=== PATIENT | female | born 1970 | race Caucasian/White ===

== ENCOUNTER → 2021-01-22 16:14 | Outpatient (CLI) | payer OTHER, SELFPAY ==
[2021-01-23 10:08] LABS: SARS-CoV19- IgM Negative (Negative)
== END ==
PROVIDERS: PCP Family Medicine; Referring Provider Family Medicine; Visit Provider Family Medicine
DX: Z01.84 Encounter for antibody response examination (principal)
CPT/HCPCS: 36415; 86769

== ENCOUNTER → 2022-01-07 13:21 | Outpatient (CLI) | payer OTHER, SELFPAY | PROVIDERS: PCP Family Medicine; Referring Provider Registered Nurse; Visit Provider Nurse Practitioner Family | DX: L89.152 Pressure ulcer of sacral region, stage 2 (principal); S70.311A Abrasion, right thigh, initial encounter; S70.312A Abrasion, left thigh, initial encounter; I89.0 Lymphedema, not elsewhere classified; G35 Multiple sclerosis; Z74.09 Other reduced mobility | CPT/HCPCS: 97597; 99203; 99213 ==

== ENCOUNTER → 2022-01-14 14:48 | Outpatient (CLI) | payer OTHER, SELFPAY | PROVIDERS: PCP Family Medicine; Referring Provider Family Medicine; Visit Provider Nurse Practitioner Family | DX: L89.152 Pressure ulcer of sacral region, stage 2 (principal); S70.311A Abrasion, right thigh, initial encounter; S70.312A Abrasion, left thigh, initial encounter; G35 Multiple sclerosis; Z74.09 Other reduced mobility; R60.9 Edema, unspecified; Z75.0 Medical services not available in home; Z99.3 Dependence on wheelchair | CPT/HCPCS: 97597; 99213 ==

== ENCOUNTER → 2022-01-21 14:39 | Outpatient (CLI) | payer OTHER, SELFPAY | PROVIDERS: PCP Family Medicine; Referring Provider Family Medicine; Visit Provider Nurse Practitioner Family | DX: L89.322 Pressure ulcer of left buttock, stage 2 (principal); I89.0 Lymphedema, not elsewhere classified; G35 Multiple sclerosis; Z74.09 Other reduced mobility; F17.210 Nicotine dependence, cigarettes, uncomplicated; Z99.3 Dependence on wheelchair | CPT/HCPCS: 97597 ==

== ENCOUNTER → 2022-02-04 12:33 | Outpatient (CLI) | payer OTHER, SELFPAY | PROVIDERS: PCP Family Medicine; Referring Provider Family Medicine; Visit Provider Surgery | DX: L89.322 Pressure ulcer of left buttock, stage 2 (principal) | CPT/HCPCS: 99213 ==

== ENCOUNTER → 2022-02-18 14:15 | Outpatient (CLI) | payer OTHER, SELFPAY | PROVIDERS: PCP Family Medicine; Referring Provider Family Medicine; Visit Provider Nurse Practitioner Family | DX: L89.322 Pressure ulcer of left buttock, stage 2 (principal); G35 Multiple sclerosis; Z74.09 Other reduced mobility; F17.210 Nicotine dependence, cigarettes, uncomplicated | CPT/HCPCS: 97602; 99213 ==

== ENCOUNTER → 2022-02-25 14:48 | Outpatient (CLI) | payer OTHER, SELFPAY | PROVIDERS: PCP Family Medicine; Referring Provider Family Medicine; Visit Provider Nurse Practitioner Family | DX: L89.152 Pressure ulcer of sacral region, stage 2 (principal); G35 Multiple sclerosis; N31.9 Neuromuscular dysfunction of bladder, unspecified; Z93.6 Other artificial openings of urinary tract status | CPT/HCPCS: 97597; 99213 ==

== ENCOUNTER → 2022-03-10 13:55 | Outpatient (CLI) | payer OTHER, SELFPAY | PROVIDERS: PCP Family Medicine; Referring Provider Family Medicine; Visit Provider Surgery | DX: Z87.440 Personal history of urinary (tract) infections (principal); L89.313 Pressure ulcer of right buttock, stage 3; L89.322 Pressure ulcer of left buttock, stage 2; G35 Multiple sclerosis; Z74.09 Other reduced mobility; R60.9 Edema, unspecified; N31.9 Neuromuscular dysfunction of bladder, unspecified; N39.41 Urge incontinence; Z97.8 Presence of other specified devices; L89.302 Pressure ulcer of unspecified buttock, stage 2; R39.89 Other symptoms and signs involving the genitourinary system; N39.0 Urinary tract infection, site not specified; Z86.69 Personal history of other diseases of the nervous system and sense organs | CPT/HCPCS: 11042; 81002; 87077; 87086; 87186 ==

== ENCOUNTER → 2022-03-10 15:17 | Outpatient (CLI) | payer OTHER, SELFPAY | PROVIDERS: PCP Family Medicine; Visit Provider Urology | DX: Z87.440 Personal history of urinary (tract) infections (principal) | CPT/HCPCS: 87077; 87086; 87186 ==

== ENCOUNTER → 2022-03-24 12:02 | Outpatient (CLI) | payer OTHER, SELFPAY ==
--- NOTE | 2022-03-24 12:05 | DI.CT.S_ITS ---
PROCEDURE: CT IVP A/P W/WO INDICATIONS: RECURRING UTI/NEUROGENIC BLADDER TECHNIQUE: Optional 5 mm thick noncontrast images acquired from the diaphragm to the symphysis pubis. After the administration of intravenous contrast, 5 mm thick images acquired from the diaphragm to the symphysis pubis after a 10-minute delay. 2 mm thick coronal and sagittal reformats were then performed of the kidneys and ureters. For radiation dose reduction, the following was used: automated exposure control, adjustment of mA and/or kV according to patient size. COMPARISON: None. FINDINGS: Image quality: Excellent. Lung bases: Lung bases are clear. Heart size is normal. Urinary system: Both kidneys are normal in size, without hydronephrosis or nephrolithiasis on pre-contrast images. No perinephric fat stranding. There is normal bilateral renal enhancement. Renal calyces appear normal in morphology when filled with contrast. Opacified portions of both ureters demonstrate normal caliber. A Martinez catheter is seen, which largely decompresses the bladder. [id number] bladder wall thickening can be seen anteriorly. No calcified bladder stones. Other solid organs: Liver is normal in size and enhancement. Gallbladder has been removed. Biliary system is non dilated. Pancreas enhances normally. Spleen is normal in size and enhancement. No adrenal nodules. Peritoneum and bowel: Bowel loops demonstrate normal wall thickness and caliber. No free fluid or air. A normal appendix is incidentally noted. Nodes and vessels: No retroperitoneal or mesenteric adenopathy by size criteria. Aorta and inferior vena cava are normal in size. Abdominal wall: No ventral hernias. Postoperative change of the anterior abdominal wall can be seen. Pelvis: No pathologic free pelvic fluid. No inguinal hernias or adenopathy. Bones: No suspicious bony lesions. No vertebral body compression fractures. Focal L5-S1 degenerative change is seen. Milder degenerative changes are seen elsewhere. IMPRESSION: Normal appearing kidneys, without hydronephrosis or masses. A Martinez catheter is seen, which largely decompresses the bladder. Mild to moderate bladder wall thickening can be seen anteriorly. Additional findings: Cholecystectomy Focal L5-S1 degenerative change Dictated by: Turner Porras M.D. on 03/24/2022 at 12:40 Approved by: Turner Porras M.D. on 03/24/2022 at 12:42
== END ==
PROVIDERS: PCP Family Medicine; Referring Provider Urology; Visit Provider Urology
DX: N39.0 Urinary tract infection, site not specified (principal); N31.9 Neuromuscular dysfunction of bladder, unspecified; M47.817 Spondylosis without myelopathy or radiculopathy, lumbosacral region; Z90.49 Acquired absence of other specified parts of digestive tract
CPT/HCPCS: 74178; Q9967

== ENCOUNTER → 2022-03-25 13:56 | Outpatient (CLI) | payer OTHER, SELFPAY | PROVIDERS: PCP Family Medicine; Referring Provider Family Medicine; Visit Provider Nurse Practitioner Family | DX: L89.313 Pressure ulcer of right buttock, stage 3 (principal); L89.152 Pressure ulcer of sacral region, stage 2; R60.9 Edema, unspecified; G35 Multiple sclerosis; Z74.09 Other reduced mobility; F17.210 Nicotine dependence, cigarettes, uncomplicated | CPT/HCPCS: 99212; 99213 ==

== ENCOUNTER → 2022-04-29 13:26 | Outpatient (CLI) | payer OTHER, SELFPAY ==
[2022-04-29 15:20] LABS: BUN Creatinine Ratio 17.1 (6-22); Blood Urea Nitrogen 12 mg/dL (7-17); Calcium 9.2 mg/dL (8.4-10.2); Carbon Dioxide 28 mmol/L (22-32); Chloride 106 mmol/L (98-107); Estimated Glomerular Filt Rate > 60 mL/min (>60); Glucose 90 mg/dL (70-100); HEMOLYSIS < 15 (0-50); Potassium 3.8 mmol/L (3.4-5.1); Sodium 141 mmol/L (137-145)
== END ==
PROVIDERS: Urology; PCP Family Medicine; Referring Provider Psychiatry & Neurology Neurology; Visit Provider Psychiatry & Neurology Neurology
DX: Z79.899 Other long term (current) drug therapy (principal); Z01.812 Encounter for preprocedural laboratory examination; Z20.822 Contact with and (suspected) exposure to COVID-19
CPT/HCPCS: 36415; 80048; 86769

== ENCOUNTER → 2022-05-05 15:54 | Outpatient (CLI) | payer OTHER, SELFPAY | PROVIDERS: PCP Family Medicine; Visit Provider Urology | DX: G35 Multiple sclerosis (principal); N31.9 Neuromuscular dysfunction of bladder, unspecified; N39.0 Urinary tract infection, site not specified; N39.41 Urge incontinence; Z97.8 Presence of other specified devices | CPT/HCPCS: 81002; 87077; 87086; 87186 ==

== ENCOUNTER → 2022-05-25 16:17 | Outpatient (CLI) | payer OTHER, SELFPAY | PROVIDERS: PCP Family Medicine; Visit Provider Urology | DX: R26.89 Other abnormalities of gait and mobility (principal); N31.9 Neuromuscular dysfunction of bladder, unspecified; N39.41 Urge incontinence; G35 Multiple sclerosis; Z97.8 Presence of other specified devices | CPT/HCPCS: 52000; 87077; 87086; 87186 ==

== ENCOUNTER → 2022-06-24 15:14 | Outpatient (CLI) | payer OTHER, SELFPAY ==
--- NOTE | 2022-06-24 15:15 | DI.RAD.S_ITS ---
PROCEDURE: XR KUB INDICATIONS: bladder calculi TECHNIQUE: One view of the abdomen acquired. COMPARISON: Located Within [facility], CT, CT IVP A/P W/WO, 03/24/2022, 12:10. FINDINGS: Surgical changes and devices: Cholecystectomy clips. Bowel: Bowel gas pattern is normal. Soft tissues: No bladder stone identified. No kidney stones seen. No suspicious abdominal calcifications. Visualized solid organ contours appear normal in size. Vascular calcifications in the region of the splenic hilum. Bones: No suspicious bony lesions. IMPRESSION: No kidney stone or bladder stone seen. Dictated by: Norm Briseno M.D. on 06/24/2022 at 16:51 Approved by: Norm Briseno M.D. on 06/24/2022 at 16:53
== END ==
PROVIDERS: PCP Family Medicine; Referring Provider Urology; Visit Provider Urology
DX: N21.0 Calculus in bladder (principal)
CPT/HCPCS: 74018

== ENCOUNTER → 2022-06-28 15:09 | Outpatient (CLI) | payer OTHER, SELFPAY | PROVIDERS: PCP Family Medicine; Visit Provider Urology | DX: N31.9 Neuromuscular dysfunction of bladder, unspecified (principal); N39.0 Urinary tract infection, site not specified; R32 Unspecified urinary incontinence; Z87.440 Personal history of urinary (tract) infections; Z97.8 Presence of other specified devices; N21.0 Calculus in bladder; G35 Multiple sclerosis; Z86.69 Personal history of other diseases of the nervous system and sense organs; N39.41 Urge incontinence | CPT/HCPCS: 51702; 87077; 87086; 87186 ==

== ENCOUNTER 2022-07-19 11:01 | Day surgery (SDC) | payer OTHER, SELFPAY ==
[2022-07-19] VITALS (7 sets, daily range): BP systolic 135–172; BP diastolic 78–91; PULSE 75–91; RESP 12–19; TEMP 36.3–36.8; O2SAT 93–96; BMI 37.8
[2022-07-19] MEDS: LACTATED RINGERS 1,000 ML 42 ML IV (12:13)
--- NOTE | 2022-07-19 12:45 | PM.PREOP ---
Pre-operative Note COVID-19 COVID-19 status: Not tested Criteria for continued procedure: Delay expected to result in less-positive ultimate med/surg outcome and Non-surgical alternatives not available or appropriate per current SOC Interval Note History & Physical reviewed/Exam performed by Physician: Yes Changes to H&P: No
[2022-07-19] MEDS: CEFAZOLIN 2 GM/100 ML PREMIX 100 ML IV (12:55)
--- NOTE | 2022-07-19 13:18 | SUR.OPER ---
Lithotomy on padded OR bed, head on pillow, arms secured on padded arm boards at <90 degrees abduction. Legs secured in padded yellow fins stirrups.
--- NOTE | 2022-07-19 13:30 | PM.OP.1 ---
Procedure & Clinicians Procedure: Cystolitholapaxy with evacuation of stone fragments and cystoscopy Same procedure as scheduled: Yes Indications: This 52-year-old female with MS, neurogenic bladder and chronically indwelling Martinez was found to have bladder calcifications and presents at this time for cystolitholapaxy to clear the calcifications and crystallization from her bladder. Patient is currently on antibiotics for culture specific growth. And will be covered by appropriate IV antibiotics as indicated by culture also. Surgeon: Xavi Cuellar Click Yes if Unassisted: Yes Anesthesia Type: General Operative Notes Findings: External genitalia is normal for if wheelchair-bound patient. Urethral meatus appears normal but somewhat enlarged. Sphincter is poorly coapted and urethral mucosa is normal. Ureteral orifices in normal position. There is bullous edema from her indwelling Martinez catheter. There are multiple calcifications 1 is dominant approximately 2-1/2 cm in diameter but rather flat approximately 4 mm in thickness. At the end of the procedure all fragments and calcifications were removed. And the 22 [place] 30 cc Martinez catheter was put back in place with 30 cc in the balloon it drained clear fluid and when seated appropriately did not leak. Closure Type: not applicable Specimen(s): other (Stone fragments for compositional analysis) Applied: catheter ([address] Martinez catheter 30 cc in the balloon.) Blood products transfused: none Procedure in detail: Procedure in detail: After informed consent was obtained, the patient was identified and brought to the operating room where she is placed in a supine position on the table. Anesthesia was induced and maintained. Ensuring an adequate level of anesthesia patient was transitioned to the lithotomy position where she was prepped, draped, prepared for Transurethral procedure. After prepping, draping, ensuring an adequate level of anesthesia and time-out a 22 [place] cystoscope sheath was passed through the urethra into the bladder. Cystoscopy was then performed. The stone curtain hemmer automatic was then inserted and the stones sequentially crushed to a size where they would washout. They were then evacuated washed out lavaged from the bladder to there were no stone fragments left. The bladder was then left full and the scope removed the 22 [place] catheter inserted and 30 cc placed within the balloon and it was placed to gravity drainage. At this point the patient was awakened having tolerated the procedure well she was transferred to the postanesthesia care unit for recovery there were no complications. Patient is to continue her antibiotics until they are gone. Complications: none Post-operative Condition: stable Disposition: PACU Plan for aftercare: Patient to follow up for my office as previously scheduled patient is to be discharged home with her Martinez catheter.
[2022-07-28 23:13] LABS: Carbonate Apatite 10 % (.); Magnesium ammon phos 90 % (.); Size 5x5 mm (.)
== END 2022-07-19 14:47 | disposition home or self-care (01) ==
PROVIDERS: PCP Family Medicine; Referring Provider Urology; Visit Provider Urology
PROC: 0TCB8ZZ Extirpation of Matter from Bladder, Via Natural or Artificial Opening Endoscopic (ICD-10-PCS; CPT 52318; principal; 2022-07-19 13:30)
DX: N21.0 Calculus in bladder (principal); N31.9 Neuromuscular dysfunction of bladder, unspecified
CPT/HCPCS: 52318; 82365; 82962; J0690; J1100; J2405; J2704; J3010

== ENCOUNTER 2022-08-09 13:38 | Emergency (ER) | payer OTHER, SELFPAY ==
[2022-08-09] VITALS (8 sets, daily range): BP systolic 125–163; BP diastolic 58–103; PULSE 84–106; RESP 16–37; TEMP 36.9; O2SAT 95–97
--- NOTE | 2022-08-09 14:34 | ED_ITS ---
HPI - Female Genitourinary <Carolyn Ashraf PA-C - Last Filed: 08/09/22 18:27> General Chief complaint: Urogenital-Female Stated complaint: pain in uretha and vaginia Time Seen by Provider: 08/09/22 14:04 Source: patient Mode of arrival: Wheelchair History of Present Illness HPI Narrative: 52-year-old female with past medical history multiple sclerosis, neurogenic bladder, bladder calculi, recurrent UTIs presents to the ED with 3 weeks of lower abdominal and urethral pain. Patient had a cystoscopy done to clear out multiple bladder calculi on 07/19/[address] Cuellar. Patient states that ever since the procedure, her symptoms have persisted. Patient states that her symptoms are actually worsening over the last week. Patient states that Dr. Cuellar declined to see her after the procedure for a postop evaluation, advised her to seek more specialized care from a urologist in [facility] [place]. Patient was able to obtain an appointment with another urology specialist in [place] that is a more accessible location to her than [place]. However, patient's initial appointment was scheduled in September, and the latest is that her appointment has been moved to an earlier date namely 08/15/2022. Patient presents to the ED he is since Dr. Smith again declined to see her since she already has an appointment with the other specialist. Patient denies fever, chills, chest pain, shortness of breath, nausea, vomiting, flank pain, lightheadedness, dizziness, syncope. Patient states that her mobility has been severely restricted due to the pain, standing up particularly exacerbates her abdominal pain. Related Data Home Medications Medication Instructions Recorded Confirmed alpha lipoic acid PO 03/10/22 06/28/22 ascorbate calcium (vitamin C) 500 1 g PO DAILY 03/10/22 07/19/22 mg tablet baclofen 20 mg tablet 20 mg PO QID 03/10/22 07/19/22 biotin-keratin [Biotin Plus PO 03/10/22 06/28/22 Keratin] calcium carbonate [Calcium 500] PO 03/10/22 06/28/22 cholecalciferol (vitamin D3) 10 10 mcg PO DAILY 03/10/22 07/19/22 mcg (400 unit) capsule citalopram 20 mg tablet (Celexa) 20 mg PO DAILY 03/10/22 07/19/22 cranberry 400 mg capsule 400 mg PO DAILY 03/10/22 07/19/22 cyanocobalamin (vitamin B-12) 1,000 mcg PO DAILY 03/10/22 07/19/22 1,000 mcg capsule d-mannose 500 mg capsule mg PO 03/10/22 06/28/22 dalfampridine 10 mg 10 mg PO Q12H 03/10/22 07/19/22 tablet,extended release,12 hr furosemide 40 mg tablet 40 mg PO BID 03/10/22 07/19/22 gabapentin 100 mg capsule 300 mg PO BEDTIME 03/10/22 07/19/22 magnesium 250 mg tablet 500 mg PO DAILY 03/10/22 07/19/22 methenamine hippurate 1 gram tablet 1 g PO BID 03/10/22 07/19/22 flilxcticoui-wjlgavar-ljvrpnu-folic 1 tab PO DAILY 03/10/22 07/19/22 acid 400 mcg-vit K1 20 mcg tablet (Women's 50 Plus Advanced) norethindrone acetate 5 mg tablet 5 mg PO DAILY 03/10/22 07/19/22 omega-3 fatty acids-fish oil 360 1 cap PO DAILY 03/10/22 07/19/22 mg-1,200 mg capsule (Fish Oil) omeprazole 20 mg capsule,delayed 20 mg PO DAILY 03/10/22 07/19/22 release rosuvastatin 20 mg tablet 20 mg PO BEDTIME 03/10/22 07/19/22 siponimod 2 mg tablet (Mayzent) 2 mg PO DAILY 03/10/22 07/19/22 tizanidine 4 mg capsule 4 mg PO TID PRN infection 03/10/22 07/19/22 Previous Rx's Medication Instructions Recorded vibegron 75 mg tablet (Gemtesa) 75 mg PO DAILY Poor efficacy of 03/30/22 current med #90 tabs sulfamethoxazole 800 1 tab PO BID #30 tabs 05/10/22 mg-trimethoprim 160 mg tablet (Bactrim DS) sulfamethoxazole 800 1 tab PO BID Extending antibiotic 05/27/22 mg-trimethoprim 160 mg tablet coverage #10 tabs (Bactrim DS) fluconazole 100 mg tablet 100 mg PO DAILY Yeast infection 07/01/22 (Diflucan) #10 tabs sulfamethoxazole 800 1 tab PO Q12H 10 days #20 tabs 08/09/22 mg-trimethoprim 160 mg tablet (Bactrim DS) Allergies Allergy/AdvReac Type Severity Reaction Status Date / Time No Known Drug Allergies Allergy Verified 07/19/22 11:35 Review of Systems <Carolyn Ashraf PA-C - Last Filed: 08/09/22 18:27> Review of Systems ROS Unobtainable: All systems reviewed & are unremarkable except as noted in HPI and below Constitutional Constitutional: Denies chills, Denies fatigue, Denies fever(s), Denies frequent falls, Denies lethargy and Denies weakness Eyes Eyes: Denies change in vision, Denies eye discharge, Denies irritation and Denies loss of vision ENT Ears, Nose, Mouth, and Throat: Denies change in voice, Denies dizziness, Denies neck pain, Denies sore throat and Denies throat swelling Cardiovascular Cardiovascular: Denies chest pain, Denies irregular heart rhythm, Denies lightheadedness, Denies palpitations, Denies dyspnea, Denies dyspnea on exertion and Denies orthopnea Respiratory Respiratory: Denies cough, Denies dyspnea, Denies dyspnea on exertion and Denies wheezing Gastrointestinal Gastrointestinal: Denies abdominal pain, Denies change in bowel habits, Denies diarrhea, Denies nausea and Denies vomiting Genitourinary Genitourinary: Denies hematuria, Reports pelvic pain, Denies flank pain, Denies urinary incontinence and Reports urinary urgency Comments: Urethral pain Musculoskeletal Musculoskeletal: Denies back pain, Denies muscle weakness, Denies neck pain, Denies numbness and Denies tingling Integumentary/Breasts Skin/Breast: Denies pruritus, Denies erythema, Denies rash and Denies wounds Neurologic Neurologic: Denies behavioral changes, Denies confusion, Denies dizziness, Denies frequent falls, Denies loss of vision, Denies numbness, Denies tingling and Denies weakness Psychiatric Psychiatric: Denies anxiety, Denies behavioral changes, Denies confusion, Denies depression, Denies homicidal ideation and Denies suicidal ideation Endocrine Endocrine: Denies fatigue, Denies flushing and Denies palpitations Hematologic/Lymphatic Hematologic/Lymphatic: Denies easy bruising Allergic/Immunologic Allergic/Immunologic: Denies urticaria, Denies throat swelling and Denies wheezing Patient History <Carolyn Ashraf PA-C - Last Filed: 08/09/22 18:27> Medical History Anemia Bladder calculi Decreased mobility Martinez catheter present GERD (gastroesophageal reflux disease) History of anemia History of chronic urinary tract infection History of decubitus ulcer Hx of gastroesophageal reflux (GERD) Hx of migraine headaches Hx of neurological disease MS (multiple sclerosis) Neurogenic bladder Recurrent urinary tract infection Recurrent urinary tract infection Urinary leakage Surgical History History of back surgery Hx of breast biopsy Hx of cholecystectomy Family History Mother Diabetes mellitus Hyperlipidemia Hypertension Grandfather Gout Substance Use Type: marijuana Exam <Carolyn Ashraf PA-C - Last Filed: 08/09/22 18:27> Narrative Exam Narrative: Const General:?cooperative, healthy appearing and comfortable HENMT Head:?normal to inspection Ears:?hearing grossly normal bilaterally Nose:?external nose normal Face and sinus:?normal facial exam and sinuses nontender Mouth:?oral mucosae normal Throat:?posterior oropharynx normal Eyes General:?appearance normal, both eyes and all related structures Neck Neck:?normal visual inspection and no lymphadenopathy noted Resp Effort & Inspection:?normal respiratory effort Auscultation:?clear to auscultation bilaterally Cardio Rate:?regular rate Rhythm:?regular rhythm GI Abdomen is soft, nondistended. Abdomen is slightly tender to palpation in the suprapubic and left lower quadrants. No CVA tenderness. External genital exam significant for a yeast infection with thick white discharge. No prolapse visualized on external genital exam. Neuro General:?patient alert, patient awake and patient oriented x3 Initial Vital Signs Initial Vital Signs: Vital Signs Temperature 98.5 F 08/09/22 13:43 Pulse Rate 104 H 08/09/22 13:43 Respiratory Rate 20 08/09/22 13:43 Blood Pressure 163/72 H 08/09/22 13:43 Pulse Oximetry 95 08/09/22 13:43 Oxygen Delivery Method Room Air 08/09/22 13:43 <Amrik Emerson DO - Last Filed: 08/10/22 08:13> Initial Vital Signs Initial Vital Signs: Vital Signs Temperature 98.5 F 08/09/22 13:43 Pulse Rate 104 H 08/09/22 13:43 Respiratory Rate 20 08/09/22 13:43 Blood Pressure 163/72 H 08/09/22 13:43 Pulse Oximetry 95 08/09/22 13:43 Oxygen Delivery Method Room Air 08/09/22 13:43 Course <Carolyn Ashraf PA-C - Last Filed: 08/09/22 18:27> Orders Ordered: ED Orders 08/09/22 14:08 CT abdomen pelvis w con Stat 08/09/22 16:45 CBC Auto Diff [Complete Blood Count AUTO DIFF] Stat CMP [Comprehensive Metabolic Panel] Stat Lipase Stat 08/09/22 17:04 Urine Culture Stat Urine Microscopic Stat Vital Signs Vital signs: Vital Signs - 8 hr 08/09/22 13:43 08/09/22 16:31 08/09/22 16:33 Temperature 98.5 F Pulse Rate 104 H 92 H Respiratory Rate 20 Blood Pressure 163/72 H 139/88 Pulse Oximetry 95 95 Oxygen Delivery Method Room Air 08/09/22 16:33 08/09/22 17:00 08/09/22 17:01 Temperature Pulse Rate 106 H 84 85 Respiratory Rate 24 16 Blood Pressure Pulse Oximetry 95 97 97 Oxygen Delivery Method 08/09/22 17:01 08/09/22 17:30 08/09/22 17:31 Temperature Pulse Rate 85 85 Respiratory Rate 25 H 25 H Blood Pressure 125/77 Pulse Oximetry 96 96 Oxygen Delivery Method Room Air 08/09/22 17:31 Temperature Pulse Rate Respiratory Rate Blood Pressure 138/58 L Pulse Oximetry Oxygen Delivery Method <Amrik Emerson DO - Last Filed: 08/10/22 08:13> Orders Ordered: ED Orders 08/09/22 14:08 CT abdomen pelvis w con Stat 08/09/22 16:45 CBC Auto Diff [Complete Blood Count AUTO DIFF] Stat CMP [Comprehensive Metabolic Panel] Stat Lipase Stat 08/09/22 17:04 Urine Culture Stat Urine Microscopic Stat Vital Signs Vital signs: Vital Signs - 8 hr 08/09/22 13:43 08/09/22 16:31 08/09/22 16:33 Temperature 98.5 F Pulse Rate 104 H 92 H Respiratory Rate 20 Blood Pressure 163/72 H 139/88 Pulse Oximetry 95 95 Oxygen Delivery Method Room Air 08/09/22 16:33 08/09/22 17:00 08/09/22 17:01 Temperature Pulse Rate 106 H 84 85 Respiratory Rate 24 16 Blood Pressure Pulse Oximetry 95 97 97 Oxygen Delivery Method 08/09/22 17:01 08/09/22 17:30 08/09/22 17:31 Temperature Pulse Rate 85 85 Respiratory Rate 25 H 25 H Blood Pressure 125/77 Pulse Oximetry 96 96 Oxygen Delivery Method Room Air 08/09/22 17:31 Temperature Pulse Rate Respiratory Rate Blood Pressure 138/58 L Pulse Oximetry Oxygen Delivery Method MDM - Female Genitourinary <Hyma Andriy, MAGDALENA - Last Filed: 08/09/22 18:27> Lab Data 08/09/22 16:45 08/09/22 16:45 Labs: Lab Results 08/09/22 08/09/22 08/09/22 Range/Units 16:45 16:45 17:04 WBC 11.3 H (4.5-11.0) X10^3/uL RBC 4.98 (4.0-5.2) X10^6/uL Hgb 15.6 (12.0-16.0) g/dL Hct 44.9 (36-46) % MCV 90.2 (80-100) fL MCH 31.3 (26-34) PG MCHC 34.7 (30-36) % RDW 15.4 H (11.6-14.8) % Plt Count 248 (150-400) X10^3/uL Neut % (Auto) 87.9 H (50-75) % Lymph % (Auto) 3.3 L (25-40) % [place] % (Auto) 7.2 (3-14) % Eos % (Auto) 1.2 L (2-4) % Baso % (Auto) 0.4 (0-2) % Neut # (Auto) 9900 H (7875-0746) /uL Lymph # (Auto) 400 L (9581-4640) /uL [place] # (Auto) 800 (0-900) /uL Eos # (Auto) 100 (0-450) /uL Baso # (Auto) 0 (0-100) /uL Sodium 140 (137-145) mmol/L Potassium 3.5 (3.4-5.1) mmol/L Chloride 101 (98-107) mmol/L Carbon Dioxide 30 (22-32) mmol/L BUN 12 (7-17) mg/dL Creatinine 0.68 (0.52-1.04) mg/dL Estimated GFR > 60 (>60) mL/min BUN/Creatinine Ratio 17.6 (6-22) Glucose 102 H (70-100) mg/dL Calcium 9.1 (8.4-10.2) mg/dL Total Bilirubin 0.6 (0.2-1.3) mg/dL AST 18 (14-36) IU/L ALT 19 (<35) IU/L Alkaline Phosphatase 79 (38-126) U/L Total Protein 7.5 (6.3-8.2) g/dL Albumin 4.3 (3.5-5.0) g/dL Globulin 3.2 (1.7-4.1) g/dL Albumin/Globulin Ratio 1.3 (1.0-2.8) Lipase 92 (23-300) U/L Urine RBC 30-100/hpf H (0-5/HPF) Urine WBC 10-30/hpf H (0-5/HPF) Ur Squamous Epith Cells 0-1 /hpf (0-5/HPF) Urine Bacteria Many (>30) H (None) Ur Culture Indicated? Specimen cultured Urine Dip Bedside Urine Glucose Negative Bedside Urine Bilirubin - Negative Bedside Urine Ketone - Negative Urine Specific [place] 1.015 Bedside Urine Occult Blood +++ Bedside Urine pH 7.0 Bedside Urine Protein ++ 100 Bedside Urine Urobilinogen - Negative Bedside Urine Nitrite - Negative Bedside Urine Leukocytes ++ 125 Esterase MDM Narrative Medical decision making narrative: 52-year-old female with past medical history multiple sclerosis, neurogenic bladder, bladder calculi, recurrent UTIs presents to the ED with 3 weeks of lower abdominal and urethral pain. Concern for UTI versus pyelonephritis versus other intra-abdominal pathology versus yeast infection versus vaginal prolapse versus other. Obtained labs, UA. Labs within normal limits. UA is positive for UTI. CT abdomen pelvis was ordered, however CT is down currently, patient opted to not wait for it to come back up. Patient also declined transfer to [facility] to get a CT. Patient has a urology appointment on 08/15/2022, which is reassuring for good follow-up. Patient agrees to take fluconazole for the yeast infection which she already has at home. Prescribed antibiotics for the UTI. ED return precautions were discussed with patient. Patient verbalized understanding. Medical records reviewed: Yes <Amrik Emerson DO - Last Filed: 08/10/22 08:13> Lab Data Labs: Lab Results 08/09/22 08/09/22 08/09/22 Range/Units 16:45 16:45 17:04 WBC 11.3 H (4.5-11.0) X10^3/uL RBC 4.98 (4.0-5.2) X10^6/uL Hgb 15.6 (12.0-16.0) g/dL Hct 44.9 (36-46) % MCV 90.2 (80-100) fL MCH 31.3 (26-34) PG MCHC 34.7 (30-36) % RDW 15.4 H (11.6-14.8) % Plt Count 248 (150-400) X10^3/uL Neut % (Auto) 87.9 H (50-75) % Lymph % (Auto) 3.3 L (25-40) % [place] % (Auto) 7.2 (3-14) % Eos % (Auto) 1.2 L (2-4) % Baso % (Auto) 0.4 (0-2) % Neut # (Auto) 9900 H (4573-9482) /uL Lymph # (Auto) 400 L (3207-3040) /uL [place] # (Auto) 800 (0-900) /uL Eos # (Auto) 100 (0-450) /uL Baso # (Auto) 0 (0-100) /uL Sodium 140 (137-145) mmol/L Potassium 3.5 (3.4-5.1) mmol/L Chloride 101 (98-107) mmol/L Carbon Dioxide 30 (22-32) mmol/L BUN 12 (7-17) mg/dL Creatinine 0.68 (0.52-1.04) mg/dL Estimated GFR > 60 (>60) mL/min BUN/Creatinine Ratio 17.6 (6-22) Glucose 102 H (70-100) mg/dL Calcium 9.1 (8.4-10.2) mg/dL Total Bilirubin 0.6 (0.2-1.3) mg/dL AST 18 (14-36) IU/L ALT 19 (<35) IU/L Alkaline Phosphatase 79 (38-126) U/L Total Protein 7.5 (6.3-8.2) g/dL Albumin 4.3 (3.5-5.0) g/dL Globulin 3.2 (1.7-4.1) g/dL Albumin/Globulin Ratio 1.3 (1.0-2.8) Lipase 92 (23-300) U/L Urine RBC 30-100/hpf H (0-5/HPF) Urine WBC 10-30/hpf H (0-5/HPF) Ur Squamous Epith Cells 0-1 /hpf (0-5/HPF) Urine Bacteria Many (>30) H (None) Ur Culture Indicated? Specimen cultured Urine Dip Bedside Urine Glucose Negative Bedside Urine Bilirubin - Negative Bedside Urine Ketone - Negative Urine Specific [place] 1.015 Bedside Urine Occult Blood +++ Bedside Urine pH 7.0 Bedside Urine Protein ++ 100 Bedside Urine Urobilinogen - Negative Bedside Urine Nitrite - Negative Bedside Urine Leukocytes ++ 125 Esterase Discharge Plan Departure Patient Disposition: Home Clinical Impression: UTI (urinary tract infection), Yeast infection Instructions: DI for Vaginal Yeast Infection, DI for Urinary Tract Infection (UTI) Activity Restrictions/Additional Instructions: You were evaluated in the ED today for lower abdominal pain. Your urine shows a urinary tract infection. On physical exam, it appears that you have a vaginal yeast infection. Since you already have fluconazole at home, please take 1 pill tonight, repeat in 72 hours if your symptoms do not improve. You were also being prescribed a antibiotic for the UTI. The vaginal pressure that you are experiencing while standing could be due to a prolapse, which needs further evaluation by a urologist. Please keep your urology appointment that you have for 08/15/2022. Return to the ED if you experience persistent vomiting, fever, chills, worsening symptoms. Prescriptions: New sulfamethoxazole-trimethoprim [Bactrim DS] 800-160 mg tablet 1 tab PO Q12H 10 Days Qty: 20 0RF No Action sulfamethoxazole-trimethoprim [Bactrim DS] 800-160 mg tablet 1 tab PO BID Qty: 30 0RF Rx Instructions: Please have patient hold methenamine while taking this antibiotic sulfamethoxazole-trimethoprim [Bactrim DS] 800-160 mg tablet 1 tab PO BID Qty: 10 0RF fluconazole [Diflucan] 100 mg tablet 100 mg PO DAILY Qty: 10 0RF alpha lipoic acid PO baclofen 20 mg tablet 20 mg PO QID biotin-keratin [Biotin Plus Keratin] PO calcium carbonate [Calcium 500] PO citalopram [Celexa] 20 mg tablet 20 mg PO DAILY cranberry 400 mg capsule 400 mg PO DAILY Rx Instructions: administer with a meal dalfampridine 10 mg tablet extended release 12 hr 10 mg PO Q12H d-mannose 500 mg capsule PO omega-3 fatty acids-fish oil [Fish Oil] 360-1,200 mg capsule 1 cap PO DAILY furosemide 40 mg tablet 40 mg PO BID gabapentin 100 mg capsule 300 mg PO BEDTIME magnesium 250 mg tablet 500 mg PO DAILY Mayzent 2 mg tablet 2 mg PO DAILY methenamine hippurate 1 gram tablet 1 g PO BID norethindrone acetate 5 mg tablet 5 mg PO DAILY omeprazole 20 mg capsule,delayed release(DR/EC) 20 mg PO DAILY rosuvastatin 20 mg tablet 20 mg PO BEDTIME tizanidine 4 mg capsule 4 mg PO TID PRN (Reason: infection) cyanocobalamin (vitamin B-12) 1,000 mcg capsule 1,000 mcg PO DAILY ascorbate calcium (vitamin C) 500 mg tablet 1 g PO DAILY cholecalciferol (vitamin D3) 10 mcg (400 unit) capsule 10 mcg PO DAILY Women's 50 Plus Advanced 400-20 mcg tablet 1 tab PO DAILY Gemtesa 75 mg tablet 75 mg PO DAILY Qty: 90 3RF Referrals: Doug Seo MD [Primary Care Provider] - Stand Alone Forms: Patient Portal/API <Amrik Emesron DO - Last Filed: 08/10/22 08:13> Cosign ED Attending Cosceferinoature Attestation: I was immediately available in the department for consultation. This documentation has been reviewed and I agree with assessment and plan. Supervised by Amrik Emerson DO
[2022-08-09 17:04] LABS: Alanine Aminotransferase 19 IU/L (<35); Albumin 4.3 g/dL (3.5-5.0); Albumin Globulin Ratio 1.3 (1.0-2.8); Alkaline Phosphatase 79 U/L (38-126); Aspartate Aminotransferase 18 IU/L (14-36); BUN Creatinine Ratio 17.6 (6-22); Bilirubin Total 0.6 mg/dL (0.2-1.3); Blood Urea Nitrogen 12 mg/dL (7-17); Calcium 9.1 mg/dL (8.4-10.2); Carbon Dioxide 30 mmol/L (22-32); Chloride 101 mmol/L (98-107); Estimated Glomerular Filt Rate > 60 mL/min (>60); Globulin 3.2 g/dL (1.7-4.1); Glucose 102 mg/dL (70-100); HEMOLYSIS < 15 (0-50); Lipase 92 U/L (23-300); Potassium 3.5 mmol/L (3.4-5.1); Sodium 140 mmol/L (137-145); Total Protein 7.5 g/dL (6.3-8.2)
[2022-08-09 17:08] LABS: Add Manual Diff / Slide Review NO; Basophils Absolute Auto 0 /uL (0-100); Basophils Percent Auto 0.4 % (0-2); Eosinophils Absolute Auto 100 /uL (0-450); Eosinophils Percent Auto 1.2 % (2-4); Hematocrit 44.9 % (36-46); Hemoglobin 15.6 g/dL (12.0-16.0); Lymphocytes Absolute Auto 400 /uL (1100-4500); Lymphocytes Percent Auto 3.3 % (25-40); Mean Corpuscular HGB Conc 34.7 % (30-36); Mean Corpuscular Hemoglobin 31.3 PG (26-34); Mean Corpuscular Volume 90.2 fL (80-100); Monocytes Absolute Auto 800 /uL (0-900); Monocytes Percent Auto 7.2 % (3-14); Neutrophils Absolute Auto 9900 /uL (1500-7000); Neutrophils Percent Auto 87.9 % (50-75); Platelet Count 248 X10^3/uL (150-400); Red Blood Cell Count 4.98 X10^6/uL (4.0-5.2); Red Cell Distribution Width 15.4 % (11.6-14.8); White Blood Cell Count 11.3 X10^3/uL (4.5-11.0)
[2022-08-09 17:46] LABS: Bacteria Urine Many (>30); Culture Indicated Urine Specimen Cultured; RBC Urine 30-100/HPF (0-5/HPF); Squamous Epithelial Cell Urine 0-1 /HPF (0-5/HPF); WBC Urine 10-30/HPF (0-5/HPF)
== END 2022-08-09 18:48 | disposition home or self-care (01) ==
PROVIDERS: Emergency Provider Student in an Organized Health Care Education/Training Program; PCP Family Medicine
DX: N39.0 Urinary tract infection, site not specified (principal); B37.31 Acute candidiasis of vulva and vagina; Z79.899 Other long term (current) drug therapy
CPT/HCPCS: 36415; 80053; 81003; 81015; 83690; 85025; 87077; 87086; 99283

== ENCOUNTER 2023-03-09 12:00 | Emergency (ER) | payer OTHER, SELFPAY ==
[2023-03-09] VITALS (13 sets, daily range): BP systolic 144–161; BP diastolic 66–85; PULSE 74–87; RESP 16–17; TEMP 36.6; O2SAT 88–96; BMI 44.9
--- NOTE | 2023-03-09 12:36 | ED.GENADULT ---
HPI - General Adult General Chief complaint: Urogenital-Female Stated complaint: Catheter Time Seen by Provider: 03/09/23 12:34 Source: patient Mode of arrival: EMS Limitations: no limitations History of Present Illness HPI narrative: Patient is a 52-year-old female. Has an indwelling catheter in place secondary to a neurogenic bladder secondary to MS. She gets catheter exchanges every 2 weeks. Her current catheter has been in place for 2 weeks. Home health came to her house today to have it exchanged when when they were trying to take the catheter out it was ?stuck? she was sent to the emergency department for further evaluation. The catheter is draining but she feels like it is not draining enough if she is still having quite a bit of leakage around the catheter. Related Data Home Medications Medication Instructions Recorded Confirmed alpha lipoic acid PO 03/10/22 06/28/22 ascorbate calcium (vitamin C) 500 1 g PO DAILY 03/10/22 07/19/22 mg tablet baclofen 20 mg tablet 20 mg PO QID 03/10/22 07/19/22 biotin-keratin [Biotin Plus PO 03/10/22 06/28/22 Keratin] calcium carbonate [Calcium 500] PO 03/10/22 06/28/22 cholecalciferol (vitamin D3) 10 10 mcg PO DAILY 03/10/22 07/19/22 mcg (400 unit) capsule citalopram 20 mg tablet (Celexa) 20 mg PO DAILY 03/10/22 07/19/22 cranberry 400 mg capsule 400 mg PO DAILY 03/10/22 07/19/22 cyanocobalamin (vitamin B-12) 1,000 mcg PO DAILY 03/10/22 07/19/22 1,000 mcg capsule d-mannose 500 mg capsule mg PO 03/10/22 06/28/22 dalfampridine 10 mg 10 mg PO Q12H 03/10/22 07/19/22 tablet,extended release,12 hr furosemide 40 mg tablet 40 mg PO BID 03/10/22 07/19/22 gabapentin 100 mg capsule 300 mg PO BEDTIME 03/10/22 07/19/22 magnesium 250 mg tablet 500 mg PO DAILY 03/10/22 07/19/22 methenamine hippurate 1 gram tablet 1 g PO BID 03/10/22 07/19/22 cqqxdlrlxxiz-hdfqjbsy-wkynnyp-folic 1 tab PO DAILY 03/10/22 07/19/22 acid 400 mcg-vit K1 20 mcg tablet (Women's 50 Plus Advanced) norethindrone acetate 5 mg tablet 5 mg PO DAILY 03/10/22 07/19/22 omega-3 fatty acids-fish oil 360 1 cap PO DAILY 03/10/22 07/19/22 mg-1,200 mg capsule (Fish Oil) omeprazole 20 mg capsule,delayed 20 mg PO DAILY 03/10/22 07/19/22 release rosuvastatin 20 mg tablet 20 mg PO BEDTIME 03/10/22 07/19/22 siponimod 2 mg tablet (Mayzent) 2 mg PO DAILY 03/10/22 07/19/22 tizanidine 4 mg capsule 4 mg PO TID PRN infection 03/10/22 07/19/22 Previous Rx's Medication Instructions Recorded sulfamethoxazole 800 1 tab PO BID #30 tabs 05/10/22 mg-trimethoprim 160 mg tablet (Bactrim DS) sulfamethoxazole 800 1 tab PO BID Extending antibiotic 05/27/22 mg-trimethoprim 160 mg tablet coverage #10 tabs (Bactrim DS) fluconazole 100 mg tablet 100 mg PO DAILY Yeast infection 07/01/22 (Diflucan) #10 tabs vibegron 75 mg tablet (Gemtesa) 75 mg PO DAILY #90 tabs 03/09/23 Allergies Allergy/AdvReac Type Severity Reaction Status Date / Time No Known Drug Allergies Allergy Verified 07/19/22 11:35 Review of Systems Genitourinary Genitourinary: Reports system reviewed and no additional complaints, except as documented Hematologic/Lymphatic On Anticoagulants: No Patient History Medical History Anemia GERD (gastroesophageal reflux disease) Bladder calculi History of decubitus ulcer Decreased mobility Martinez catheter present Recurrent urinary tract infection Urinary leakage Neurogenic bladder Recurrent urinary tract infection MS (multiple sclerosis) Hx of neurological disease Hx of migraine headaches Hx of gastroesophageal reflux (GERD) History of chronic urinary tract infection History of anemia Surgical History History of back surgery Hx of breast biopsy Hx of cholecystectomy Family History Mother Diabetes mellitus Hyperlipidemia Hypertension Grandfather Gout Social History marital status: household members: spouse Smoking Status: Current every day smoker alcohol intake: never caffeine: No Type(s) of exercise: none Smoking Status: Current every day smoker Substance Use Type: marijuana Exam Initial Vital Signs Initial Vital Signs: Vital Signs Temperature 97.8 F 03/09/23 12:08 Pulse Rate 81 03/09/23 12:08 Respiratory Rate 16 03/09/23 12:08 Blood Pressure 149/74 H 03/09/23 12:08 Pulse Oximetry 96 03/09/23 12:08 Oxygen Delivery Method Room Air 03/09/23 12:08 GI Inspection: normal to inspection and non-distended Other: Suprapubic catheter in place Extrem General: edema Course Orders Ordered: ED Orders 03/09/23 13:09 Urine Culture Stat Vital Signs Vital signs: Vital Signs - 8 hr 03/09/23 12:08 Temperature 97.8 F Pulse Rate 81 Respiratory Rate 16 Blood Pressure 149/74 H Pulse Oximetry 96 Oxygen Delivery Method Room Air Medical Decision Making MDM Narrative Medical decision making narrative: Her suprapubic catheter was removed. A new catheter was placed. A urine culture was obtained she was most likely colonized. It is now draining. Will discharge patient home with return precautions. Discharge Plan Departure Patient Disposition: Home Clinical Impression: Obstructed suprapubic catheter Activity Restrictions/Additional Instructions: A urine culture was pending at the time of your discharge. We will contact you if we need to start you on any antibiotics based on this. Keep all of your scheduled medical appointments. Return to the emergency department for new symptoms. Prescriptions: No Action sulfamethoxazole-trimethoprim [Bactrim DS] 800-160 mg tablet 1 tab PO BID Qty: 30 0RF Rx Instructions: Please have patient hold methenamine while taking this antibiotic sulfamethoxazole-trimethoprim [Bactrim DS] 800-160 mg tablet 1 tab PO BID Qty: 10 0RF fluconazole [Diflucan] 100 mg tablet 100 mg PO DAILY Qty: 10 0RF Gemtesa 75 mg tablet 75 mg PO DAILY Qty: 90 3RF alpha lipoic acid PO baclofen 20 mg tablet 20 mg PO QID biotin-keratin [Biotin Plus Keratin] PO calcium carbonate [Calcium 500] PO citalopram [Celexa] 20 mg tablet 20 mg PO DAILY cranberry 400 mg capsule 400 mg PO DAILY Rx Instructions: administer with a meal dalfampridine 10 mg tablet extended release 12 hr 10 mg PO Q12H d-mannose 500 mg capsule PO omega-3 fatty acids-fish oil [Fish Oil] 360-1,200 mg capsule 1 cap PO DAILY furosemide 40 mg tablet 40 mg PO BID gabapentin 100 mg capsule 300 mg PO BEDTIME magnesium 250 mg tablet 500 mg PO DAILY Mayzent 2 mg tablet 2 mg PO DAILY methenamine hippurate 1 gram tablet 1 g PO BID norethindrone acetate 5 mg tablet 5 mg PO DAILY omeprazole 20 mg capsule,delayed release(DR/EC) 20 mg PO DAILY rosuvastatin 20 mg tablet 20 mg PO BEDTIME tizanidine 4 mg capsule 4 mg PO TID PRN (Reason: infection) cyanocobalamin (vitamin B-12) 1,000 mcg capsule 1,000 mcg PO DAILY ascorbate calcium (vitamin C) 500 mg tablet 1 g PO DAILY cholecalciferol (vitamin D3) 10 mcg (400 unit) capsule 10 mcg PO DAILY Women's 50 Plus Advanced 400-20 mcg tablet 1 tab PO DAILY Referrals: Doug Seo MD [Primary Care Provider] - Stand Alone Forms: Patient Portal/API
--- NOTE | 2023-03-09 13:13 | PC.NURSE ---
pt arrived with a suprapubic cath in place. home health nurse was unable to change the catheter today. I deflated the balloon (10 cc sterile water), (20 F cath) and was unable to remove catheter. Dr. May in room . Dr. May was able to pull out the catheter. Catheter had skin adhered to it with large amount of sediment in the catheter tip. Replaced suprapubic catheter , 20 f 10 cc balloon without incident. draining yellow urine. small blood tinged. Dr. amy aware. cx sent
== END 2023-03-09 15:44 | disposition home or self-care (01) ==
PROVIDERS: Emergency Provider Emergency Medicine; PCP Family Medicine
DX: T83.098A Other mechanical complication of other urinary catheter, initial encounter (principal)
CPT/HCPCS: 87077; 87086; 87186; 99283

== ENCOUNTER → 2023-04-17 13:16 | Outpatient (ROUT) | payer OTHER, SELFPAY ==
[2023-04-17 13:22] LABS: Appearance Urine UA CLOUDY; Bilirubin Urine UA NEGATIVE (NEGATIVE); Color Urine UA YELLOW; Glucose Urine UA NEGATIVE (Negative); Ketones Urine UA NEGATIVE (NEGATIVE); Leukocyte Esterase Urine UA 1+ (NEGATIVE); Nitrite Urine UA POSITIVE (Negative); Occult Blood Urine UA 3+ (Negative); Protein Urine UA 1+ (Negative); Specific Gravity Urine UA 1.015 (1.000-1.035); Urobilinogen Urine UA 0.2 E.U./dL (0.2)
[2023-04-17 13:32] LABS: Amorphous Sediment Urine 1+; Bacteria Urine Moderate (10-30); RBC Urine 10-30/HPF (0-5/HPF); Squamous Epithelial Cell Urine None Seen (0-5/HPF); Urine Volume 10mL (spun); WBC Urine 1-5/HPF (0-5/HPF); pH Urine UA 8.5 (4.5-8.0)
[2023-04-17 13:33] LABS: Culture Indicated Urine Specimen Cultured
== END ==
PROVIDERS: PCP Family Medicine; Visit Provider Urology
DX: Z43.5 Encounter for attention to cystostomy (principal)
CPT/HCPCS: 81001; 87077; 87086; 87186

== ENCOUNTER → 2023-05-19 14:17 | Outpatient (CLI) | payer OTHER, SELFPAY ==
[2023-05-19 15:28] LABS: Add Manual Diff / Slide Review NO; Basophils Absolute Auto 0 /uL (0-100); Basophils Percent Auto 0.3 % (0-2); Eosinophils Absolute Auto 100 /uL (0-450); Eosinophils Percent Auto 0.8 % (2-4); Hematocrit 49.7 % (36-46); Lymphocytes Absolute Auto 400 /uL (1100-4500); Lymphocytes Percent Auto 5.1 % (25-40); Mean Corpuscular HGB Conc 34.2 % (30-36); Mean Corpuscular Hemoglobin 30.8 PG (26-34); Mean Corpuscular Volume 90.1 fL (80-100); Monocytes Absolute Auto 600 /uL (0-900); Monocytes Percent Auto 7.1 % (3-14); Neutrophils Absolute Auto 7400 /uL (1500-7000); Neutrophils Percent Auto 86.7 % (50-75); Platelet Count 216 X10^3/uL (150-400); Red Blood Cell Count 5.51 X10^6/uL (4.0-5.2); Red Cell Distribution Width 16.3 % (11.6-14.8); White Blood Cell Count 8.5 X10^3/uL (4.5-11.0)
[2023-05-19 15:53] LABS: Alanine Aminotransferase 19 IU/L (<35); Albumin 4.4 g/dL (3.5-5.0); Albumin Globulin Ratio 1.4 (1.0-2.8); Alkaline Phosphatase 70 U/L (38-126); Aspartate Aminotransferase 21 IU/L (14-36); BUN Creatinine Ratio 16.4 (6-22); Bilirubin Total 0.7 mg/dL (0.2-1.3); Blood Urea Nitrogen 10 mg/dL (7-17); Calcium 9.7 mg/dL (8.4-10.2); Carbon Dioxide 29 mmol/L (22-32); Chloride 105 mmol/L (98-107); Cholesterol 207 mg/dL (140-199); Estimated Glomerular Filt Rate > 60 mL/min (>60); Globulin 3.2 g/dL (1.7-4.1); Glucose 88 mg/dL (70-100); HDL Cholesterol 41 mg/dL (40-60); HEMOLYSIS < 15 (0-50); LDL Cholesterol Calculated 137 mg/dL (<100); Potassium 3.4 mmol/L (3.4-5.1); Sodium 142 mmol/L (137-145); Total Protein 7.6 g/dL (6.3-8.2); Triglycerides 145 mg/dL (35-150)
[2023-05-22 17:18] LABS: Appearance Urine UA CLEAR; Bilirubin Urine UA NEGATIVE (NEGATIVE); Color Urine UA YELLOW; Glucose Urine UA NEGATIVE (Negative); Ketones Urine UA NEGATIVE (NEGATIVE); Leukocyte Esterase Urine UA 2+ (NEGATIVE); Nitrite Urine UA POSITIVE (Negative); Occult Blood Urine UA NEGATIVE (Negative); Protein Urine UA 1+ (Negative); Urobilinogen Urine UA 0.2 E.U./dL (0.2)
[2023-05-22 17:21] LABS: pH Urine UA 8.5 (4.5-8.0)
[2023-05-22 17:24] LABS: Bacteria Urine Many (>30); Mucus Urine 3+ (Negative); RBC Urine 0-1/HPF (0-5/HPF); Squamous Epithelial Cell Urine 1-5 /HPF (0-5/HPF); Triple Phosphate Crystal Urine Occasional; Urine Volume 10mL (spun); WBC Urine 5-10/HPF (0-5/HPF)
[2023-05-22 17:25] LABS: Culture Indicated Urine Cult Not Indicated
== END ==
PROVIDERS: PCP Family Medicine; Referring Provider Family Medicine; Visit Provider Family Medicine
DX: N39.0 Urinary tract infection, site not specified (principal); E78.2 Mixed hyperlipidemia; D84.821 Immunodeficiency due to drugs; R53.83 Other fatigue; R53.81 Other malaise; T45.1X5A Adverse effect of antineoplastic and immunosuppressive drugs, initial encounter; Z79.899 Other long term (current) drug therapy
CPT/HCPCS: 36415; 80053; 80061; 81001; 85025; 87077; 87086; 87186

== ENCOUNTER → 2023-11-20 13:17 | Outpatient (CLI) | payer OTHER, SELFPAY | PROVIDERS: PCP Family Medicine; Referring Provider Urology; Visit Provider Urology | DX: N31.9 Neuromuscular dysfunction of bladder, unspecified (principal); Z93.59 Other cystostomy status | CPT/HCPCS: 87077; 87086; 87186 ==

== ENCOUNTER → 2024-10-25 12:40 | Outpatient (ROUT) | payer OTHER, SELFPAY ==
[2024-10-25 12:50] LABS: Appearance Urine UA SL CLOUDY; Bilirubin Urine UA NEGATIVE (NEGATIVE); Color Urine UA YELLOW; Glucose Urine UA NEGATIVE (Negative); Ketones Urine UA TRACE (NEGATIVE); Leukocyte Esterase Urine UA 2+ (NEGATIVE); Nitrite Urine UA POSITIVE (Negative); Occult Blood Urine UA 1+ (Negative); Protein Urine UA NEGATIVE (Negative); Specific Gravity Urine UA <=1.005 (1.000-1.035); Urobilinogen Urine UA 0.2 E.U./dL (0.2)
[2024-10-25 12:57] LABS: pH Urine UA 7.0 (4.5-8.0)
== END ==
PROVIDERS: PCP Family Medicine; Visit Provider Family Medicine
DX: N39.0 Urinary tract infection, site not specified (principal)
CPT/HCPCS: 81001; 87077; 87086; 87186